=== PATIENT | male | born 1990 | race Caucasian/White ===

== ENCOUNTER 2024-02-25 23:15 | Emergency (ER) | payer OTHER, SELFPAY ==
[2024-02-25 23:20] VITALS: BP 137/76; PULSE 59; RESP 17; TEMP 36.6; O2SAT 99
--- NOTE | 2024-02-26 01:08 | ED.EYEPROB ---
HPI - Eye Problem General Chief complaint: Eye Problems Stated complaint: right eye forgein body Time Seen by Provider: 02/26/24 00:18 Source: patient Mode of arrival: ambulatory Limitations: no limitations History of Present Illness HPI Narrative: This is a 34-year-old male that presents to the emergency department for possible foreign body in the eye. Reports he was driving around own errands when he started to feel like there was something in his eye. Reports irritation and redness. No known injury. 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 He did wear protective glasses today. No known injury. Related Data Allergies Allergy/AdvReac Type Severity Reaction Status Date / Time erythromycin base Allergy Unknown Vomiting Verified 02/25/24 23:17 Sulfa (Sulfonamide Allergy Unknown Vomiting Verified 02/25/24 23:17 Antibiotics) Review of Systems Review of Systems: CONSTITUTIONAL: Denies fever EYES: Reports redness and tearing. Denies visual changes All systems reviewed & are unremarkable except as noted in HPI and below PMFSH Past Medical History Medical History (Updated 02/26/24 @ 02:02 by Grazyna Bernal PA-C) Attention deficit disorder of childhood with hyperactivity Esophageal reflux Social History Social History (Updated 02/26/24 @ 01:14 by Grazyna Bernal PA-C) Substance use: never Exam Narrative: GENERAL: Well-appearing, well-nourished, and in no acute distress. HEAD: Normocephalic, atraumatic. EYES: PERRLA and EOMI. Very small metallic foreign body over the pupil of the right eye. Redness and tearing noted. Eye pressures 21 bilaterally. Visual acuity 20/30 right eye, 20/25 left eye EXTREMITIES: Normal range of motion. No edema. SKIN: Warm, dry, no rash. NEURO: No focal deficits. Alert and oriented x3. PSYCH: Normal mood and affect Course Course Emergency Course: Patient left before completing evaluation and getting his instructions on follow up. I was able to reach him by telephone and informed him he has a prescription at the pharmacy. I also talked with him about the recommendation by Ophthalmology that he needs a scan of his orbits for further evaluation. He was given information for his follow-up appointment Consultations Consultation #1: Spoke with ophthalmology, Dr. Fay at [facility]. recommends CT of the orbits to ensure there is not anything deeper in the eye. He has a follow-up appointment 10/30 at 10:00 a.m. so that he can see the cornea specialist. Will start patient on Vigamox. Date: 02/26/24 Vital Signs Vital signs: Vital Signs Temperature 97.8 F 02/25/24 23:20 Pulse Rate 59 L 02/25/24 23:20 Respiratory Rate 17 02/25/24 23:20 Blood Pressure 137/76 02/25/24 23:20 Pulse Oximetry 99 02/25/24 23:20 Temperature 97.8 F 02/25/24 23:20 Pulse Rate 59 L 02/25/24 23:20 Respiratory Rate 17 02/25/24 23:20 Blood Pressure 137/76 02/25/24 23:20 Pulse Oximetry 99 02/25/24 23:20 MDM - Eye Problem Differential Diagnosis Differential diagnosis: Likely corneal abrasion, conjunctivitis, acute iritis and other ( Foreign body) Critical Care Time Critical Care Time Critical Care Time: No Discharge Plan Discharge Clinical Impression: Foreign body in eye Patient Disposition: Elopement After Seen by Prov Condition: Guarded Prognosis Prescriptions: New moxifloxacin 0.5 % drops 1 drp RIGHT EYE TID 7 Days Qty: 3 0RF Follow-up/Referrals: PHYSICIAN,OUTBOARD MOTOR TESTER [Primary Care Provider] -
== END 2024-02-26 02:00 | disposition left against medical advice (07) ==
PROVIDERS: Emergency Provider Physician Assistant
DX: T15.81XA Foreign body in other and multiple parts of external eye, right eye, initial encounter (principal); K21.9 Gastro-esophageal reflux disease without esophagitis; W44.8XXA Other foreign body entering into or through a natural orifice, initial encounter
CPT/HCPCS: 99283

== ENCOUNTER 2025-02-02 02:40 | Day surgery (SDC) | payer OTHER, SELFPAY ==
[2025-01-18 13:51] VITALS: BMI 32.4
--- OUTSIDE RECORDS SUMMARY | 2025-02-02 02:43 | XMS_ITS | Clinical Summary ---
Author Organization [email or web address] Address [address] [place] [address] Care Team Providers Care Superintendent Terminal Name Role Phone None, Physician Primary Care Provider Unavailabl e Source Comments [email or web address],non-owned Affiliates and Associated Physician Practices is amultiple site organization consisting of ambulatory clinics and hospital sitesin [place], [place], [place] and [place]. This disclosure is being madepursuant to the Care Everywhere program and may not contain all information available regarding this patient. Last updated 18.[email or web address] Allergies Active Allergy Reactions Criticality Noted Date Comments Sulfa Drugs Skin Reactions,Nausea,Rash 02/03/2011 Patient states he gets cramps in his stomach as well, Medications * Be aware that medications may not be up to date on this document. Alwaysverify current medications with the patient. 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 Gender Identity Not on file Sexual Orientation Not on file Plan of Treatment Health Maintenance Due Date Last Done Comments HIV SCREENING 2005 HEPATITIS C SCREENING 01/06/2008 DTAP/TDAP/TD VACCINES (1 - Tdap) 2009 HEPATITIS B VACCINE (1 of 3 - 19+ 3-dose series) 2009 PNEUMOCOCCAL VACCINE (1 of 2 - PCV) 2009 HPV VACCINE (1 - 3-dose SCDM series) 2017 DEPRESSION SCREENING 05/03/2024 COVID-19 VACCINE (1 - 2023-2 5 season) 2025 INFLUENZA VACCINE (#1) 2025 ZOSTER VACCINE (1 of 2) 01/11/2040 HIB VACCINE Aged Out No longer eligi ble based on patient's age to complete this topic MENINGOCOCCAL (Group B) VACC INE SHARED DECISION-MAKING Aged Out No longer eligibl e based on patient's age to complete this topic MENINGOCOCCAL GROUPS A/C/Y/W VACCINE Aged Out No longer eligible b ased on patient's age to complete this topic Insurance [facility] Care Teams Superintendent Terminal Relationship Specialty Start Date End Date None, Physician [address] [place] [address] PCP - General 03/02/24
--- OUTSIDE RECORDS SUMMARY | 2025-02-02 02:43 | XMS_ITS | Clinical Summary ---
Author Organization [facility] Address Formerly [facility] [place] [address] Care Team Providers Care Publications Editor Name Role Phone Unavailable Primary Care Provider Unavailabl e Social History Tobacco Use Types Packs/Day Years Used Date Smoking Tobacco: Never Assessed Sex and Gender Information Value Date Recorded Sex Assigned at Not on file Legal Sex Male 4:07 PM CDT Gender Identity Not on file Sexual Orientation Not on file Plan of Treatment Health Maintenance Due Date Last Done Comments Annual Physical 1993 Hepatitis C 01/11/2008 DTaP, Tdap and Td Vaccines ( 1 - Tdap) 2009 Hepatitis B Vaccines (1 of 3 - 19+ 3-dose series) 2009 HPV Vaccines (1 - 3-dose SCD M series) 2017 COVID-19 Vaccine ( - 2023-2 5 season) 2025 Meningococcal B Vaccine Aged Out No l onger eligible based on patient's age to complete this topic Meningococcal Vaccine Aged Out No garo wolf eligible based on patient's age to complete this topic Pneumococcal Vaccine: Pediat rics (0 to 5 Years) and At-Risk Patients (6 to 49 Years) Aged Out No longer eligible b ased on patient's age to complete this topic RSV Immunizations Under 20 Months Aged Out No longer eligible based on patient's age to complete this topic
[2025-02-02 11:26] VITALS: BP 125/83; PULSE 60; RESP 18; TEMP 36.9; O2SAT 99
[2025-02-02] MEDS: LACTATED RINGERS 1,000 ML 150 ML IV CONT (11:29)
--- NOTE | 2025-02-02 12:43 | P.HP_ITS ---
H&P: HPI History of Present Illness Date/Time: 02/02/25 12:43 Chief Complaint: Rectal bleeding-GERD Narrative: the patient suffer from persistent heartburn for several years, recently exacerbated. In addition he endorses occasional rectal bleeding episodes. He is referred for EGD and colonoscopy today. Review of Systems Review of Systems: All systems reviewed & are unremarkable except as noted in HPI and below PMFSH Past Medical History Medical History Esophageal reflux Attention deficit disorder of childhood with hyperactivity Social History Social History Years smoked: 5 Smoking status: Current every day smoker Tobacco type: cigarettes Alcohol intake: never Substance use: current Substance use type: marijuana Other substance usage details: daily Living arrangements: with family Spiritual care concerns: No Meds Home Medications and Allergies Home Medications ?Medication ?Instructions ?Recorded ?Confirmed ?Type No Home Medications 02/02/25 02/02/25 H istory Allergies Allergy/AdvReac Type Severity Reaction Status Date / Time erythromycin base Allergy Unknown Vomiting Verified 01/18/25 13:50 Sulfa (Sulfonamide Allergy Unknown Vomiting Verified 01/18/25 13:50 Antibiotics) Vital Signs Vital Signs - 24 hr 02/02/25 11:26 Temperature 98.4 F Pulse Rate 60 Respiratory Rate 18 Blood Pressure 125/83 Pulse Oximetry 99 Oxygen Delivery Room Air Exam Const: General: cooperative and healthy appearing Resp: Effort & Inspection: normal respiratory effort and able to speak in complete sentences Auscultation: clear to auscultation bilaterally Cardio: Rate: regular rate Rhythm: regular rhythm GI: Inspection: normal to inspection GI Palp: No No hepatosplenomegaly present Auscultation: normal bowel sounds Rectal Exam: deferred Skin: General skin exam: normal color Psych: Appearance: grossly normal Mental Status: mental status grossly normal Assessment and Plan Assessment and plan (1) GERD (gastroesophageal reflux disease): Code(s): K21.9 - Gastro-esophageal reflux disease without esophagitis Status: Acute Assessment and Plan: The patient is deemed a good candidate for the procedure. Consent signed. Will proceed.
--- NOTE | 2025-02-02 12:50 | P.PNAN_ITS ---
Anes - Initial Pre Proc Eval Procedure: Operation Date: 02/02/25 12:30 Proposed Procedures p EGD & Diagnostic Colonoscopy - Adrian Jung MD Date/Time: 02/02/25 12:50 Surgeon: Adrian Jung MD Pre Op Diagnosis: Abnormal weight loss Patient Data Age: 35 Gender: M Height: 1.65 m Weight: 84.5 kg Last Vital Signs Temp 98.4 F 02/02/25 11:26 Pulse 60 02/02/25 11:26 Resp 18 02/02/25 11:26 BP 125/83 02/02/25 11:26 Pulse Ox 99 02/02/25 11:26 O2 Del Method Room Air 02/02/25 11:26 Allergies Allergy/AdvReac Type Severity Reaction Status Date / Time erythromycin base Allergy Unknown Vomiting Verified 01/18/25 13:50 Sulfa (Sulfonamide Allergy Unknown Vomiting Verified 01/18/25 13:50 Antibiotics) Home Medications ?Medication ?Instructions ?Recorded ?Confirmed ?Type No Home Medications 02/02/25 02/02/25 H istory Patient hx anesthesia problems: none Family hx anesthesia problems: none Results Review: All pre-operative results and documents have been reviewed as part of the pre- operative evaluation. [facility] Past Medical History Medical History Esophageal reflux Attention deficit disorder of childhood with hyperactivity Social History Social History Years smoked: 5 Smoking status: Current every day smoker Tobacco type: cigarettes Alcohol intake: never Substance use: current Substance use type: marijuana Other substance usage details: daily Living arrangements: with family Spiritual care concerns: No Anes - Eval Final PreProcedure Day of Procedure 02/02/25 12:50 Patient weight: obese Lungs: normal air movement Airway: Mallampati scale class II and special considerations (Missing upper teeth on R and L. ) Neurological: alert and oriented Last oral intake: >/= 8 hours ASA classification: III Emergent: no Anesthetic plan: proceed Anesthesia type and monitoring: general GIVS and standard monitoring Results Review: All pre-operative results and documents have been reviewed as part of the pre- operative evaluation. Ex smoker of cigs, quit early 2024. Daily cannabis use, BMI 31. Pt w GERD for EGD/colonoscopy. Informed Consent: The patient's anesthetic plan and its attendant risks and benefits were discussed with the patient/family/POA. Questions were solicited and answers provided to the satisfaction of the patient/family/POA.
[2025-02-02] MEDS: BENZOCAINE (*SP) 60 ML SPRAY CAN (HURRICAINE) 1 SPRAY MUCOUS MEM (12:57)
--- NOTE | 2025-02-02 13:03 | S_PTH ---
PATIENT: Gilberto Andre LOC: [facility]#:[id number] AGE/SX: 35/M ROOM: RE02/02/[address]: Adrian Jung MD : 1990 BED: DIS: 02/02/2025 SPEC #: [id number] RECD: 02/05/25 08:41 STATUS: GHASSAN RETracey #: [id number] LAUREN: 02/02/25 13:[address]: Adrian Jung DEPT: [facility] Surgical RECD BY: Kamilah Wilburn ENTERED: 02/05/25 08:41 SP TYPE: Surgical OTHR DR: WIRING MECHANIC PHYSICIAN Tissues: A - Gastric Biopsy B - Gastric Biopsy C - Rectal Polyp Procedures: Hematoxylin and Eosin Stain Gross and Microscopic Level 4
--- NOTE | 2025-02-02 13:12 | SUR.OPER ---
EGD: ended 1304 COLON: started 131
[2025-02-02] MEDS: SIMETHICONE ORAL SUSPENSION 20 MG/0.3 ML 30 ML BOTTLE 0.6 ML IRRIGATION (13:17)
[2025-02-02 13:28] VITALS: BP 106/62; PULSE 70; RESP 19; O2SAT 96
[2025-02-02 13:38] VITALS: BP 103/61; PULSE 62; RESP 17; O2SAT 97
[2025-02-02 13:48] VITALS: BP 137/85; PULSE 59; RESP 22; O2SAT 100
== END 2025-02-02 13:58 | disposition home or self-care (01) ==
PROVIDERS: Referring Provider Nurse Practitioner Family; Visit Provider Internal Medicine Gastroenterology
PROC: 0DJ08ZZ Inspection of Upper Intestinal Tract, Via Natural or Artificial Opening Endoscopic (ICD-10-PCS; CPT 45378; principal; 2025-02-02 12:30)
DX: K62.5 Hemorrhage of anus and rectum (principal); K62.1 Rectal polyp; K21.00 Gastro-esophageal reflux disease with esophagitis, without bleeding; K29.50 Unspecified chronic gastritis without bleeding; F17.210 Nicotine dependence, cigarettes, uncomplicated; F12.90 Cannabis use, unspecified, uncomplicated; E66.9 Obesity, unspecified; Z68.31 Body mass index [BMI] 31.0-31.9, adult
CPT/HCPCS: 45385; 43239; 88305; J2003; J2250; J2704; J7120